=== PATIENT | female | born 1950 | race Caucasian/White ===

== ENCOUNTER 2019-02-15 11:54 | Emergency (ER) | payer BC, OTHER ==
[~2019-02-15] VITALS: Ht 152.4 cm; Wt 66.2 kg
[2019-02-15 12:11] VITALS: Ht 152.4 cm; Wt 66.2 kg
[2019-02-15 15:50] VITALS: BP 135/65
== END 2019-02-15 15:50 | disposition home or self-care (01) ==
LOC: ED 11:54
DX: S42.201A Unspecified fracture of upper end of right humerus, initial encounter for closed fracture (principal); S01.511A Laceration without foreign body of lip, initial encounter; S00.83XA Contusion of other part of head, initial encounter; S80.12XA Contusion of left lower leg, initial encounter; I10 Essential (primary) hypertension; K21.9 Gastro-esophageal reflux disease without esophagitis; E78.5 Hyperlipidemia, unspecified; W18.30XA Fall on same level, unspecified, initial encounter; Y93.89 Activity, other specified; Y92.89 Other specified places as the place of occurrence of the external cause; Y99.8 Other external cause status
CPT/HCPCS: 36415; J1885; J2001; J2270; Q0162